=== PATIENT | female | born 1990 | race Caucasian/White ===

== ENCOUNTER → 2018-02-15 | Outpatient (REF) | payer MEDICARE ==
[2018-02-15 12:57] LABS: AMORPHOUS SEDIMENT SMALL (NEGATIVE); APPEARANCE, URINE HAZY (CLEAR); BACTERIA, URINE AUTO 1+ (NEGATIVE); BILIRUBIN, URINE AUTO NEGATIVE (NEGATIVE); BLOOD, URINE BLOOD NEGATIVE (NEGATIVE); COLOR, URINE YELLOW (YELLOW); GLUCOSE, URINE (UA) AUTO NEGATIVE (NEGATIVE); KETONE, URINE AUTO NEGATIVE (NEGATIVE); LEUKOCYTE ESTERASE, URINE AUTO 1+ (NEGATIVE); NITRITE, URINE AUTO NEGATIVE (NEGATIVE); PROTEIN, URINE AUTO NEGATIVE (NEGATIVE); RBC, URINE AUTO 1 /HPF (0-3); SPECIFIC GRAVITY URINE AUTO 1.027 (1.002-1.035); SQUAMOUS EPITHELIAL CELL UR AU 3 /HPF (0-6); UROBILINOGEN, URINE AUTO 0.2 mg/dL (0.0-2.0); WBC, URINE AUTO 3 /HPF (0-3)
[2018-02-15 13:15] LABS: HCG, SERUM QUANTITATIVE < 1.0 MIU/ML
[2018-02-15 13:46] LABS: HIV 1&2 SCREEN CENTAUR NEGATIVE (NEGATIVE)
[2018-02-15 16:32] LABS: CHLAMYDIA DNA AMPLIFICATION NEGATIVE (NEGATIVE); GC DNA AMPLIFICATION NEGATIVE (NEGATIVE)
== END ==
LOC: M LAB REF 12:33
DX: Z32.01 Encounter for pregnancy test, result positive (principal)
CPT/HCPCS: 84702

== ENCOUNTER → 2018-08-22 | Outpatient (REF) | payer MEDICARE | LOC: M LAB REF 16:27 | DX: O36.80X0 Pregnancy with inconclusive fetal viability, not applicable or unspecified (principal); Z32.01 Encounter for pregnancy test, result positive | CPT/HCPCS: 87086 ==

== ENCOUNTER → 2018-08-22 | Outpatient (REF) | payer MEDICARE ==
[2018-08-22 18:19] LABS: HEMATOCRIT 36.2 % (36.0-47.0); HEMOGLOBIN 11.7 g/dl (12.0-15.5); MEAN CORPUSCULAR HEMOGLOBIN 28.7 pg (27.0-33.0); MEAN CORPUSCULAR HGB CONC 32.3 g/dl (32.0-36.5); MEAN CORPUSCULAR VOLUME 88.9 fl (80.0-96.0); PLATELET COUNT, AUTOMATED 207 10^3/uL (150-450); RED BLOOD COUNT 4.07 10^6/uL (4.00-5.40)
[2018-08-23 11:26] LABS: HEPATITIS C VIRUS ABY INDEX 0.1 INDEX (<0.8); HIV 1&2 SCREEN CENTAUR NEGATIVE (NEGATIVE); RUBELLA IgG QUALITATIVE IMMUNE (IMMUNE)
== END ==
LOC: M LAB REF 17:11
PROVIDERS: ATTEND Obstetrics & Gynecology
DX: O36.80X0 Pregnancy with inconclusive fetal viability, not applicable or unspecified (principal)

== ENCOUNTER → 2018-10-15 | Outpatient (REF) | payer MEDICARE | LOC: M LAB REF 14:28 | PROVIDERS: ATTEND Obstetrics & Gynecology | DX: Z34.82 Encounter for supervision of other normal pregnancy, second trimester (principal); R39.9 Unspecified symptoms and signs involving the genitourinary system ==

== ENCOUNTER 2019-01-28 14:10 | Inpatient (IN) | payer MEDICARE, MEDICAID ==
[2019-01-28] VITALS (13 sets, daily range): BP systolic 142–212; BP diastolic 75–106
[~2019-01-28] VITALS: Ht 165.1 cm; Wt 183.2 kg
[2019-01-28] MEDS ORDERED: SODIUM CHLORIDE 0.9% 1000ML IV ONE (15:15)
[2019-01-28] MEDS ORDERED: AZITHROMYCIN INJ 500 MG, VIAL MATE ADAPTER 1 EACH in D5W 250 ML IV ONE (15:15)
[2019-01-28] MEDS ORDERED: BICITRA 30ML SOLN UDC PO ONE (15:15)
[2019-01-28 15:29] LABS: HEMATOCRIT 32.9 % (36.0-47.0); HEMOGLOBIN 10.7 g/dl (12.0-15.5); MEAN CORPUSCULAR HEMOGLOBIN 28.2 pg (27.0-33.0); MEAN CORPUSCULAR HGB CONC 32.5 g/dl (32.0-36.5); MEAN CORPUSCULAR VOLUME 86.6 fl (80.0-96.0); PLATELET COUNT, AUTOMATED 170 10^3/uL (150-450); WHITE BLOOD COUNT 7.4 10^3/uL (4.0-10.0)
[2019-01-28] MEDS ORDERED: NS 1,000 ML IV SCH (16:00)
[2019-01-28 16:01] LABS: BLOOD UREA NITROGEN 6 MG/DL (7-18); CALCIUM LEVEL 8.4 MG/DL (8.5-10.1); CARBON DIOXIDE LEVEL 22 MEQ/L (21-32); CHLORIDE LEVEL 110 MEQ/L (98-107); GLOMERULAR FILTRATION RATE > 60.0 (>60); GLUCOSE, FASTING 97 MG/DL (70-100); POTASSIUM SERUM 4.2 MEQ/L (3.5-5.1); SODIUM LEVEL 141 MEQ/L (136-145)
[2019-01-28 16:27] LABS: ALT/SGPT 12 U/L (12-78); BILIRUBIN,TOTAL 0.3 MG/DL (0.2-1.0); LDH LACTATE DEHYDROGENASE 190 U/L (84-246); URIC ACID 5.7 MG/DL (2.6-6.0)
[2019-01-28 16:45] LABS: TOTAL PROTEIN,RANDOM URINE 37.8 MG/DL (0.0-12.0)
[2019-01-28] MEDS ORDERED: LABETALOL HCL 100 MG/20 ML VIAL As Ordered ONE (18:18)
[2019-01-28] MEDS ORDERED: BUPIVACAINE/DEXTROSE 0.75% 2 ML AMP As Ordered ONE (18:27)
[2019-01-28] MEDS ORDERED: ONDANSETRON 4MG/2ML VIAL (J2405) As Ordered ONE (18:27)
[2019-01-28] MEDS ORDERED: fentaNYL 100 MCG/2 ML INJECTION (J3010) As Ordered ONE ×2 (18:27→23:20)
[2019-01-28] MEDS ORDERED: OXYTOCIN INJ 10 UNITS/ML VIAL (J2590) As Ordered ONE (18:27)
[2019-01-28] MEDS ORDERED: KETOROLAC 60 MG/2 ML VIAL (J1885) As Ordered ONE ×2 (18:27→21:50)
[2019-01-28] MEDS ORDERED: LABETALOL HCL 100 MG/20 ML VIAL IV STA (18:30)
[2019-01-28] MEDS ORDERED: PHENYLEPHRINE INJ 10MG/ML VIAL (J2370) As Ordered ONE (18:57)
[2019-01-28] MEDS ORDERED: LIDOCAINE 2% INJ 100 MG/5 ML SDV (FOR ANES.) As Ordered ONE (19:38)
[2019-01-28] MEDS ORDERED: LIDOCAINE 1% SDV INJ 30 ML VIAL As Ordered ONE (19:53)
[2019-01-28 20:51] LABS: CORD GAS ABE V -5.8; CORD GAS PH V 7.277 UNITS; CORD GAS PO2 V 32.6 mmHg; CORD GAS SBC V 19.1 MEQ/L; CORD GAS TCO2 V 22.4 MEQ/L
[2019-01-28 20:54] LABS: CORD GAS HCO3 A 24.1 MEQ/L; CORD GAS O2 SAT A 91.7 %; CORD GAS PCO2 A 62.9 mmHg; CORD GAS PO2 A 68.9 mmHg; CORD GAS SBC A 20.3 MEQ/L; CORD GAS TCO2 A 26.1 MEQ/L
[2019-01-28 20:55] LABS: CORD GAS PH A 7.202 UNITS
[2019-01-28] MEDS ORDERED: OXYTOCIN DRIP 30 UNITS in APPROPRIATE DILUENT 1 EA IV SCH (21:12)
[2019-01-28] MEDS ORDERED: ACETAMINOPHEN 650 MG SUPP PR PRN (21:15)
[2019-01-28] MEDS ORDERED: ONDANSETRON 4MG/2ML VIAL (J2405) IV PRN ×2 (21:15→23:45)
[2019-01-28] MEDS ORDERED: RHOGAM 300 MCG (1500 IU) INJ (J2790) IM SCH (21:15)
[2019-01-28] MEDS ORDERED: METHYLERGONOVINE MALEATE 0.2 MG TAB PO PRN (21:15)
[2019-01-28] MEDS ORDERED: MEASLES,MUMPS,RUBELLA VACCINE INJ (MMR-II) (90707) SC SCH (21:15)
[2019-01-28] MEDS ORDERED: ACETAMINOPHEN 500 MG TAB PO PRN (21:15)
[2019-01-28] MEDS ORDERED: MOM 30ML SUSPENSION UDC PO PRN (21:15)
[2019-01-28] MEDS ORDERED: PERCOCET 5MG/325MG TAB PO PRN (21:15)
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
[2019-01-28] MEDS ORDERED: OXYTOCIN 30 UNITS IN 0.9% NaCl 500ML IV BAG (J2590) As Ordered ONE (23:01)
[2019-01-28] MEDS ORDERED: ePHEDrine SULFATE 25 MG/5 ML(5MG/ML) SYRINGE As Ordered ONE (23:14)
[2019-01-28] MEDS ORDERED: KETOROLAC 30 MG/ML VIAL (J1885) As Ordered ONE (23:20)
--- NOTE | 2019-01-28 23:22 | REPVR ---
EXAM: CT Lumbar Spine Without Contrast EXAM DATE/TIME: 01/28/2019 10:35 PM CLINICAL HISTORY: 28 years old, female; Device placement; Complication of orthopedic device, implant or graft thoracolumbar spine; Other mechanical complication; Spinal needle left in; Prior surgery; Surgery date: Post-operative (0-2 days) TECHNIQUE: Imaging protocol: Axial computed tomography images of the lumbar spine without intravenous contrast. Coronal and sagittal reformatted images were created and reviewed. Radiation optimization: All CT scans at this facility use at least one of these dose optimization techniques: automated exposure control; mA and/or kV adjustment per patient size (includes targeted exams where dose is matched to clinical indication); or iterative reconstruction. COMPARISON: No relevant prior studies available. FINDINGS: Vertebrae: There is no fracture. Vertebral alignment is normal. There is no fracture of the posterior elements. There is no focal osseous lesion. There is a linear radiopaque density measuring 4 cm in length seen between the spinous processes of L2 and L3. This is best seen on series 304 images 27-30. Its anterior tip is in the midline posterior to the spinal canal. The tip is approximately 5 mm posterior to the epidural space. Distance from skin surface cannot be determined as the skin surface is not included on the scan. Discs/Spinal canal/Neural foramina: There is no central spinal stenosis. There is minimal spondylosis and disc bulge at L5-S1 with mild foraminal stenosis. Soft tissues: There is slight streaky density in the subcutaneous fat posteriorly. There is a small punctate focus of gas. IMPRESSION: 1. No fracture. 2. Linear foreign body consistent with history of spinal needle within the midline between the spinous processes of L2 and L3. Tip is 5 mm posterior to the epidural space. Electronically signed by: Raz Velez On 01/28/2019 23:22:02 PM
[2019-01-28] MEDS: fentaNYL 100 MCG/2 ML INJECTION (J3010) IV PRN ×4 (23:24→23:52)
[2019-01-28] MEDS ORDERED: KETOROLAC 30 MG/ML VIAL (J1885) IV PRN (23:45)
[2019-01-29] VITALS (12 sets, daily range): BP systolic 133–188; BP diastolic 64–90; O2SAT 97–100
[2019-01-29] MEDS: NORCO, ANEXSIA 5/325MG TABLET (HYDROcodone/ACETAMINOPHEN) PO PRN ×4 (01:39→19:38)
[2019-01-29 05:51] LABS: HEMATOCRIT 27.1 % (36.0-47.0); HEMOGLOBIN 8.6 g/dl (12.0-15.5); MEAN CORPUSCULAR HEMOGLOBIN 27.7 pg (27.0-33.0); MEAN CORPUSCULAR HGB CONC 31.7 g/dl (32.0-36.5); MEAN CORPUSCULAR VOLUME 87.4 fl (80.0-96.0); PLATELET COUNT, AUTOMATED 151 10^3/uL (150-450); WHITE BLOOD COUNT 11.1 10^3/uL (4.0-10.0)
[2019-01-29 06:12] LABS: ALT/SGPT 10 U/L (12-78); BILIRUBIN,TOTAL 0.2 MG/DL (0.2-1.0); CREATININE FOR GFR 0.54 MG/DL (0.55-1.30); GLOMERULAR FILTRATION RATE > 60.0 (>60); LDH LACTATE DEHYDROGENASE 263 U/L (84-246)
--- NOTE | 2019-01-29 08:24 | CR ---
DATE OF CONSULTATION: 01/28/2019 CONSULTING PHYSICIAN: Eliane Carter, anesthesiologist. REASON FOR CONSULTATION: Retained foreign body in the lumbar spine. HISTORY OF PRESENT ILLNESS: Milli Garay is a 28-year-old female who is with a BMI greater than 60, who was undergoing an elective section and had attempted single shot spinal by the anesthesia service and the first attempt spinal needle apparently was broken within the soft tissues of the lumbar spine. Subsequently a second spinal distal to this was able to be placed. The patient underwent uneventful section, however orthopedics was consulted intraoperatively regarding the retained foreign body. PAST MEDICAL HISTORY: Morbid obesity. ALLERGIES: GABAPENTIN. MEDICATIONS: - vitamins. PAST SURGICAL HISTORY: Previous wisdom tooth extraction FAMILY HISTORY: Noncontributory. SOCIAL HISTORY: Not obtained prior to consultation. Review of her electronic medical record, she denies any alcohol or drug use. REVIEW OF SYSTEMS: Significant for morbid obesity. PHYSICAL EXAMINATION: Vital signs: Intraoperative immediately preop vital signs were heart rate 86, blood pressure 177/84, respiratory rate 18, pulse oximetry 97%. General: This morbidly obese female patient was supine in the operating room with spinal anesthesia in place. There were two punctate wounds for the previous spinal anesthesia attempts. Given the spinal in place, the patient was unable to move either lower extremity. There was no significant tenderness at the lumbar spine. ASSESSMENT: This is a 28-year-old female immediately status post elective section with suspected retained foreign body. PLAN: Intraoperatively I attempted to obtain C-arm fluoroscopic imaging to localize the foreign body and it was difficult to localize, therefore the patient was brought down on monitors to x-ray where a lateral lumbar spine x-ray was obtained and it appears there is a radiopaque foreign body between the L2 and L3 spinous process confirming the presence of the foreign body. A CT scan was also obtained which confirmed presence of a radioopaque foreign body in the midline directly between the L2 and L3 Spinous processes. PLAN: Given that there is no evidence of the needle being intradural and it appears to be in the soft tissues between the L2 and L3 spinous process, there is no indication for urgent foreign body removal, but this may be considered on an elective basis. I discussed the patient with Dr. Rob, spine surgeon, and we will discuss further treatment with the patient to include possible elective foreign body removal versus retainment. The patient will be monitored in the recovery area and will return to Labor and Delivery for routine care. These findings were discussed with the patient and she expressed understanding. All questions were answered. JASMIN
[2019-01-29] MEDS: LABETALOL 100 MG TAB PO SCH ×2 (08:30→21:19)
[2019-01-29] MEDS: PRENATAL VITAMINS CHEWABLE TABLET PO SCH (08:30)
--- NOTE | 2019-01-29 08:36 | REP ---
Cross-table lateral lumbar spine: Single view. History: Spinal needle broke, question still in spine. Findings: There is a 5.3 cm metallic linear fragment consistent with component of a spinal needle projecting in the interspinous space at the L2-3 level. Its internal and appears to terminate at the level of the lamina. Lumbar vertebral body heights are preserved alignment is normal. Disc spaces are maintained. There is degenerative disc disease in the lower thoracic spine at T10-11 and to a lesser extent, at the T11-12. Impression: There is a metallic linear density consistent with a fragment of a spinal needle 5.3 cm in length projecting in the interspinous space at L2-3. Electronically Signed by Jorge Harrington MD 01/29/2019 03:37 P
[2019-01-29] MEDS: DOCUSATE SODIUM 100 MG CAP PO SCH ×3 (08:44→21:19)
--- NOTE | 2019-01-29 09:11 | RO ---
DATE OF PROCEDURE: 01/28/2019 Milli is a 28-year-old female, 2, para 1-0-0-1, at 40 weeks gestation with superimposed severe preeclampsia, macrosomia, history of gestational diabetes and morbid obesity. She was recommended by the center and was transferred here for her delivery via section. The patient originally received care at [facility] to [facility] in [place]. PREOPERATIVE DIAGNOSES: 1. Intrauterine at 40-1/7 weeks gestation. 2. macrosomia. 3. Severe preeclampsia. 4. Diabetes. 5. Morbid obesity. POSTOPERATIVE DIAGNOSES: 1. Intrauterine at 40-1/7 weeks gestation. 2. macrosomia. 3. Severe preeclampsia. 4. Diabetes. 5. Morbid obesity. PROCEDURE: Primary low transverse section via Pfannenstiel incision. SURGEON: Dr. Kelvin Krueger WOODS WARDEN: Dr. Birmingham ANESTHESIA: Spinal. COMPLICATIONS: None. ESTIMATED BLOOD LOSS: 900 mL. Please note however that the during the spinal anesthesia, it was reported that one of the small 23 gauge spinal needles were broken in the soft tissue and that after the procedure orthopedics was obtained to help retrieve the piece of the spinal needle. They will be addressing that portion of the procedure. DESCRIPTION OF PROCEDURE: After obtaining informed consent, the patient was taken to the operating room where spinal anesthetic was found to be adequate. She was then draped and prepped in the usual sterile fashion in the supine position. At this point, a Pfannenstiel incision was made with the help of my assistant general manager Dr. Birmingham. The incision was carried down to the fascia. The fascia was incised in midline fashion and carried through laterally. The superior aspect of the fascia was grasped with two Jalen clamps, tented off and dissected off the rectus muscles sharply. The inferior aspect was dissected off in a similar fashion. The rectus muscles in midline fashion. The peritoneum identified. The peritoneal cavity entered bluntly. Superior and inferior dissection of the peritoneum was then done with good visualization of the bladder. At this point, a Mobius skin retractor was placed. A low transverse uterine incision was made. The was delivered in atraumatic fashion. Nose and mouth bulb suctioned. Cord doubly clamped and cut and was handed over to awaiting dyer and washer. Cord blood and cord gas were sent. Placenta removed manually. Uterus cleared of all clot and debris. Uterine incision was then repaired in two separate layers of #0 Vicryl sutures. The pelvis copiously irrigated with normal saline and suctioned out. Attention turned to the peritoneum which was closed in running fashion using #2-0 Vicryl. Fascia closed in two separate segments of #0 Vicryl sutures and the skin was reapproximated in subcuticular fashion using 3-0 Vicryl on a Sage needle. Sterile dressing placed. The patient tolerated procedure well. After the procedure, both myself, the anesthesiologist and the orthopedic surgeon went to see the family in the waiting room. We discussed the spinal needle that was broken during the spinal and that she will undergo further testing in the form of a CAT scan and possible flat plate to localize where the needle is in the mid-back or soft tissue for later retrieval. Please note that Dr. Albert, the orthopedic surgeon, will be taking care of that portion as far as retrieving the needle. The family was fully aware of this complication and the plan of action to retrieve the broken needle.
[2019-01-29] MEDS: HEPARIN SOD (PORCINE) 5000 UNITS/ML VIAL SQ SCH ×2 (13:21→21:20)
[2019-01-29] MEDS ORDERED: ADACEL/BOOSTRIX VACCINE (DIPHTH/PERTUSS/ACELL/TETANUS)0.5ML SYR (90715) IM ONE (19:00)
[2019-01-29] MEDS: IBUPROFEN 800 MG TAB PO PRN (21:19)
[2019-01-30 02:00] VITALS: BP 131/69
[2019-01-30] MEDS: NORCO, ANEXSIA 5/325MG TABLET (HYDROcodone/ACETAMINOPHEN) PO PRN (05:19)
[2019-01-30 06:21] VITALS: BP 150/70
[2019-01-30 08:30] VITALS: BP 145/85
[2019-01-30] MEDS ORDERED: PERC5TAB12 PO (08:59)
[2019-01-30] MEDS ORDERED: LABE300T2 PO (08:59)
[2019-01-30] MEDS ORDERED: IBUP80TA PO (08:59)
[2019-01-30] MEDS: DOCUSATE SODIUM 100 MG CAP PO SCH (09:05)
[2019-01-30] MEDS: HEPARIN SOD (PORCINE) 5000 UNITS/ML VIAL SQ SCH (09:05)
[2019-01-30] MEDS: PRENATAL VITAMINS CHEWABLE TABLET PO SCH (09:05)
[2019-01-30 09:06] VITALS: BP 145/85
[2019-01-30] MEDS: LABETALOL 100 MG TAB PO SCH (09:06)
[2019-01-30] MEDS ORDERED: PRENTAB9 PO (09:46)
[2019-01-30] MEDS ORDERED: MAPA500T2 PO (09:46)
[2019-01-30] MEDS: IBUPROFEN 800 MG TAB PO PRN (16:16)
== END 2019-01-30 17:12 | disposition home or self-care (01) | DRG 788 ==
LOC: M LDI 14:10 → M PCU 23:37 → M OBS 01-29 12:04
PROVIDERS: ADMIT Obstetrics & Gynecology; ATTEND Obstetrics & Gynecology
PROC: 10D00Z1 Extraction of Products of Conception, Low, Open Approach (ICD-10-PCS; principal; 2019-01-28 18:14)
DX: O14.14 Severe pre-eclampsia complicating childbirth (principal); T81.590A Other complications of foreign body accidentally left in body following surgical operation, initial encounter; Z3A.40 40 weeks gestation of pregnancy; O99.214 Obesity complicating childbirth; E66.01 Morbid (severe) obesity due to excess calories; O36.63X0 Maternal care for excessive fetal growth, third trimester, not applicable or unspecified; Z37.0 Single live birth; O9A.22 Injury, poisoning and certain other consequences of external causes complicating childbirth; Y70.3 Surgical instruments, materials and anesthesiology devices (including sutures) associated with adverse incidents

== ENCOUNTER → 2019-04-11 | Outpatient (CLI) | payer MEDICARE, MEDICAID ==
[~2019-04-11] MED LIST: IBUP80TA PO; ISOVUE-300 61% 50ML VIAL (Q9967) As Ordered ONE; LABE300T2 PO; LIDOCAINE 1% MDV 20ML VIAL As Ordered ONE; LIDOCAINE 2% MDV 20 ML VIAL As Ordered ONE; MAPA500T2 PO; NORE1TAB7 PO; PERC5TAB12 PO; PRENTAB9 PO; VALA500T5 PO; VALT500T PO
[2019-04-11 09:02] VITALS: BP 133/71
--- NOTE | 2019-04-11 14:41 | REP ---
IR foreign body retrieval The patient is status post epidural anesthesia, needle was left in the soft tissues of the back since January. Patient referred for percutaneous retrieval. O/E Patient comfortable. No redness or skin break down on back. Nil palpable. Studies: Fluoroscopy demonstrates 1 mm wide needle, 25 cm deep to skin. Impression: Depth of needle and body habitus precludes minimally invasive percutaneous removal. Recommend referral to general surgery Thank you for this referral. Electronically Signed by Carmen Conrad MD 04/11/2019 02:40 P
--- NOTE | 2019-04-11 14:42 | IPNPDOC ---
Text Note Date of Service The patient was seen on 04/11/19. NOTE IR foreign body retrieval History: The patient is status post epidural anesthesia, needle broke and was left in the soft tissues of the back since January. Patient referred for percutaneous retrieval. O/E Patient comfortable. No redness or skin break down on back. Nil palpable. Studies: Fluoroscopy demonstrates 1 mm wide needle, 25 cm deep to skin. Impression: Depth of needle and body habitus precludes minimally invasive percutaneous removal. Recommend referral to general surgery. Thank you for this referral. VS,Kristye, I+O VS, Antbone, I+O Vital Signs Date Time Temp Pulse Resp B/P (MAP) Pulse Ox O2 Delivery O2 Flow Rate FiO2 04/11/19 09:02 97.2 89 18 99 BRIANA RIVERO MD Apr 11, 2019 14:42
== END ==
LOC: M IRPRO 09:11
PROVIDERS: ATTEND Radiology Diagnostic Radiology
DX: Z18.10 Retained metal fragments, unspecified (principal)

== ENCOUNTER 2019-04-12 19:18 | Emergency (ER) | payer MEDICARE, MEDICAID ==
[~2019-04-12] VITALS: Ht 170.2 cm; Wt 159.1 kg
[~2019-04-12 19:18] MED LIST changes: -ISOVUE-300 61% 50ML VIAL (Q9967) As Ordered ONE; -LIDOCAINE 1% MDV 20ML VIAL As Ordered ONE; -LIDOCAINE 2% MDV 20 ML VIAL As Ordered ONE; -NORE1TAB7 PO
[2019-04-12] MEDS ORDERED: NORE1TAB7 PO (19:41)
[2019-04-12 20:00] LABS: HEMATOCRIT 33.3 % (36.0-47.0); HEMOGLOBIN 10.4 g/dl (12.0-15.5); MEAN CORPUSCULAR HEMOGLOBIN 26.5 pg (27.0-33.0); MEAN CORPUSCULAR HGB CONC 31.2 g/dl (32.0-36.5); MEAN CORPUSCULAR VOLUME 84.9 fl (80.0-96.0); PLATELET COUNT, AUTOMATED 268 10^3/uL (150-450); RED BLOOD COUNT 3.92 10^6/uL (4.00-5.40); WHITE BLOOD COUNT 9.2 10^3/uL (4.0-10.0)
[2019-04-12 20:41] LABS: AMPHETAMINES LEVEL URINE NEGATIVE (NEGATIVE); BARBITURATES URINE NEGATIVE (NEGATIVE); BENZODIAZEPINES URINE NEGATIVE (NEGATIVE); CANNABINOIDS URINE NEGATIVE (NEGATIVE); COCAINE METABOLITE URINE NEGATIVE (NEGATIVE); METHADONE URINE NEGATIVE (NEGATIVE); OPIATES URINE NEGATIVE (NEGATIVE); PHENCYCLIDINE URINE NEGATIVE (NEGATIVE)
[2019-04-12 20:53] LABS: ACETAMINOPHEN LEVEL < 2.0 UG/ML (10.0-30.0); ALBUMIN 3.4 GM/DL (3.2-5.2); ALT/SGPT 36 U/L (12-78); BILIRUBIN,DIRECT < 0.1 MG/DL (0.0-0.2); BILIRUBIN,TOTAL 0.2 MG/DL (0.2-1.0); BLOOD UREA NITROGEN 12 MG/DL (7-18); CARBON DIOXIDE LEVEL 26 MEQ/L (21-32); CHLORIDE LEVEL 111 MEQ/L (98-107); CREATININE FOR GFR 0.95 MG/DL (0.55-1.30); ETHYL ALCOHOL (ETHANOL) < 0.003 % (0.000-0.010); GLOMERULAR FILTRATION RATE > 60.0 (>60); GLUCOSE, FASTING 120 MG/DL (70-100); POTASSIUM SERUM 3.4 MEQ/L (3.5-5.1); SALICYLATE LEVEL < 1.7 MG/DL (5.0-30.0); SODIUM LEVEL 146 MEQ/L (136-145); TOTAL PROTEIN 7.1 GM/DL (6.4-8.2)
[2019-04-12 21:06] LABS: HCG, SERUM QUALITATIVE NEGATIVE (NEGATIVE)
[2019-04-12 22:07] VITALS: BP 142/88
== END 2019-04-12 22:14 | disposition home or self-care (01) ==
LOC: M ED 19:18
DX: F32.9 Major depressive disorder, single episode, unspecified (principal); F43.0 Acute stress reaction; Z79.899 Other long term (current) drug therapy; Z88.8 Allergy status to other drugs, medicaments and biological substances
CPT/HCPCS: 80048; 80076; 80307; 84443; 84703; 85027; 99284; G0480